=== PATIENT | male | born 1960 | race Two or more races ===

== ENCOUNTER 2023-10-15 07:13 | Day surgery (SDC) | payer OTHER ==
[2023-10-10 11:48] LABS: PH,URINE 5.5 (5.0-8.0); URINE APPEARANCE Clear; URINE BILIRRUBIN Negative (NEGATIVE); URINE BLOOD Small; URINE COLOR Yellow; URINE GLUCOSE Negative (NEGATIVE); URINE KETONE Negative (NEGATIVE); URINE LEUKOCYTE Negative; URINE NITRATE Negative; URINE PROTEIN Negative (NEGATIVE); URINE UROBILINOGEN 0.2 E.U./dl
[2023-10-10 11:48] LABS: HEMATOCRIT 40.1 % (39.0-48.0); HEMOGLOBIN 13.5 g/dL (13-16.00); MEAN CELL VOLUME 83.5 fL (80.0-100.00); MEAN CORPUSCULAR HGB CONC 33.5 g/dl (32.0-36.0); PLATELET COUNT 311 K/uL (150-450)
[2023-10-10 11:52] LABS: URINE BACTERIA 7.5 uL (0.0-1933); URINE RBC 52.8 uL (0.0-20.8); URINE WBC 5.8 uL (0.0-23.2)
[2023-10-10 11:56] LABS: URINE CAST 0.45 uL (0.0-1.40); URINE EPITHELIAL CELLS 1.2 uL (0.0-38.8)
[2023-10-10 12:25] LABS: INR 0.97; PARTIAL THROMBOPLASTIN TIME 28.9 SECONDS (22.0-34.0); PROTHROMBIN TIME 10.2 SECONDS (9.0-11.5)
[2023-10-10 12:29] LABS: ALBUMIN 3.9 gm/dL (3.4-5.0); BILIRUBIN TOTAL 0.42 mg/dL (0.3-1.2); CALCIUM 9.6 mg/dL (8.5-10.1); CREATININE SERUM 0.9 mg/dL (0.70-1.30); GFR 84.69; GLOBULINA 3.3 G/DL (2.4-3.5); POTASSIUM 4.53 mEq/L (3.5-5.1); TOTAL PROTEIN 7.2 gm/dL (6.4-8.2)
[~2023-10-15 07:13] MED LIST: ALLOPURINOL 300MG; AMLODIPINE-OLM1 EAC3; BUSPIRONE; CLOTRIMAZOLE; PEPCID AC20 MG; SERTRALINE20 MG/1 ML; SIMVASTATIN 40MG; VITAMINA D3; [UNRECOGNIZED DRUG - OTHER]
[2023-10-15] MEDS ORDERED: CEFAZOLIN SODIUM 1,000 MG VIAL ONE (09:25)
[2023-10-15] MEDS ORDERED: BUPIVACAINE HCL/Mpf 0.5% 10ML VIAL ONE (12:57)
== END 2023-10-15 17:15 | disposition home or self-care (01) ==
LOC: CIR.AMB 07:13
PROVIDERS: ATTEND Orthopaedic Surgery Hand Surgery
DX: M19.032 Primary osteoarthritis, left wrist (principal); I10 Essential (primary) hypertension; F41.9 Anxiety disorder, unspecified